=== PATIENT | male | born 1965 ===

== ENCOUNTER 2018-09-15 21:17 | Emergency (ER) | payer SELFPAY ==
[2018-09-15 21:57] VITALS: BP 149/90; PULSE 75; RESP 18; TEMP 98.2; O2SAT 99
--- NOTE | 2018-09-15 23:39 | C.PDOC ---
History Of Present Illness 52 year old male presents to the ED c/o left lower back pain for the past 2 weeks. Patient reports his pain is non radiating, worsens with movement and seating down. Patient states 2 weeks ago he fell on stairs and landed on his let back. Patient was seen at [facility], had X-ray that were negative and was discharged home. Patient reports he was given Toradol shot with no improvement. Patient denies fever, chills, CP, SOB, rash, saddle anesthesia, bowel incontinence, weakness, numbness. Time Seen by Provider: 09/15/18 22:11 Chief Complaint (Nursing): Back Pain History Per: Patient History/Exam Limitations: no limitations Onset/Duration Of Symptoms: Days Current Symptoms Are (Timing): Still Present Quality Of Discomfort: "Pain" Exacerbating Factor(s): Turning, Sitting Recent travel outside of the [place]: No Additional History Per: Patient Past Medical History Reviewed: Historical Data, Nursing Documentation, Vital Signs Vital Signs: Last Vital Signs Temp 98.2 F 09/15/18 21:46 Pulse 75 09/15/18 21:46 Resp 18 09/15/18 21:46 BP 149/90 09/15/18 21:46 Pulse Ox 99 09/15/18 21:46 Primary Care Provider: Teo Archuleta - Medical History PMH: Hypercholesterolemia, Hyperlipidemia Surgical History: No Surg Hx Family History: States: Unknown Family Hx - Social History Hx Tobacco Use: No Hx Alcohol Use: No Hx Substance Use: No - Immunization History Hx Tetanus Toxoid Vaccination: No Hx Influenza Vaccination: No Hx Pneumococcal Vaccination: No Review Of Systems Constitutional: Negative for: Fever, Chills Cardiovascular: Negative for: Chest Pain Respiratory: Negative for: Shortness of Breath Gastrointestinal: Negative for: Nausea, Vomiting, Abdominal Pain Genitourinary: Negative for: Incontinence Musculoskeletal: Positive for: Back Pain. Negative for: Leg Pain Neurological: Negative for: Weakness, Numbness, Headache, Dizziness Physical Exam - Physical Exam Appears: Non-toxic, No Acute Distress Skin: Normal Color, Warm, Dry Head: Atraumatic, Normacephalic Eye(s): bilateral: Normal Inspection, PERRL, EOMI Neck: Normal ROM, No Midline Cervical Tenderness, Supple Chest: Symmetrical Cardiovascular: Rhythm Regular Respiratory: Normal Breath Sounds, No Rales, No Rhonchi, No Wheezing Gastrointestinal/Abdominal: Soft, No Tenderness, No Distention Back: No Vertebral Tenderness, Muscle Spasm ((+) left sided lumbar), Paraspinal Tenderness (left paralumbar) Extremity: Normal ROM, No Tenderness, No Swelling Neurological/Psych: Oriented x3, Normal Speech, Normal Cognition, Normal Motor, Normal Sensation Gait: Steady ED Course And Treatment O2 Sat by Pulse Oximetry: 99 (ON RA) Pulse Ox Interpretation: Normal Medical Decision Making Medical Decision Making: Plan: * Valium 5 mg PO * Prednisone 60 mg PO On re-exam, the patient reports improvement. Lungs are CTA, heart is RRR, abdomen is soft, non-tender and the patient is tolerating PO well. Ambulatory in the ED with steady gait. Follow up with the medical doctor within 1-2 days. Return if worsened. Disposition - Disposition Referrals: Joel Garcia MD [Non-Staff] - Disposition: HOME/ ROUTINE Disposition Time: 23:39 Condition: GOOD Additional Instructions: Follow up with the medical doctor within 1-2 days. Return if worsened. Prescriptions: diaZEpam [Valium] 5 mg PO TID #21 tab predniSONE [Prednisone] 20 mg PO BID #10 tab traMADol [Ultram] 50 mg PO Q6 PRN #15 tab PRN Reason: Pain Instructions: Low Back Pain (DC) Forms: [facility] (Khmer), Work Excuse - Clinical Impression Clinical Impression: Low back pain - PA / CRYSTAL REPORT DEVELOPER / Resident Statement MD/DO has reviewed & agrees with the documentation as recorded. - Scribe Statement The provider has reviewed the documentation as recorded by the Scribe Bob Elizabeth All medical record entries made by the Scribe were at my direction and personally dictated by me. I have reviewed the chart and agree that the record accurately reflects my personal performance of the history, physical exam, medical decision making, and the department course for this patient. I have also personally directed, reviewed, and agree with the discharge instructions and disposition.
== END 2018-09-15 23:50 | disposition home or self-care (01) ==
LOC: C.ER 21:17
DX: M54.5 Low back pain (principal); E78.00 Pure hypercholesterolemia, unspecified; E78.5 Hyperlipidemia, unspecified